=== PATIENT | female | born 1980 | race Caucasian/White ===

== ENCOUNTER 2017-03-25 10:31 | Emergency (ER) | payer BC | END 2017-03-25 13:18 | disposition left against medical advice (07) | LOC: UCCORT 10:31 | DX: R09.89 Other specified symptoms and signs involving the circulatory and respiratory systems (principal); J02.9 Acute pharyngitis, unspecified; R51 Headache; Z53.21 Procedure and treatment not carried out due to patient leaving prior to being seen by health care provider ==